=== PATIENT | male | born 1935 | race Asian ===

== ENCOUNTER 2022-04-02 13:12 | Inpatient (IN) | payer MEDICARE ==
[2022-04-02] MEDS ORDERED: ZIPRASIDONE MESYLATE 20 MG VIAL IM NR (15:30)
[2022-04-03] MEDS: LORazepam 2 MG/ML VIAL IM PRN ×3 (01:07→10:00)
[2022-04-03 07:21] LABS: Basophils % (Auto) 0.8 % (0.0-1.8); Eosinophils # (Auto) 0.1 K/mm3 (0.0-0.4); Eosinophils % (Auto) 2.1 % (0.0-4.3); Hematocrit 38.8 % (35.5-45.6); Hemoglobin 13.1 gm/dl (11.8-15.2); Lymphocytes # (Auto) 1.3 K/mm3 (1.2-5.4); Lymphocytes % (Auto) 33.8 % (13.4-35.0); Mean Corpuscular HGB Conc 34 % (32-34); Mean Corpuscular Volume 90 fl (84-94); Monocytes # (Auto) 0.3 K/mm3 (0.0-0.8); Monocytes % (Auto) 7.9 % (0.0-7.3); Platelet Count 191 K/mm3 (140-440); Red Cell Distribution Width 13.9 % (13.2-15.2)
[2022-04-03 07:54] LABS: Alanine Aminotransferase 22 units/L (7-56); Albumin 4.2 g/dL (3.9-5); BUN/Creatinine Ratio 23; Blood Urea Nitrogen 25 mg/dL (9-20); Calcium 9.2 mg/dL (8.4-10.2); HDL Cholesterol 37 mg/dL (40-59); Hemolysis Index 6; LDL Cholesterol,Direct 92 mg/dL (50-130)
--- NOTE | 2022-04-03 09:43 | History and Physical Report ---
GP History & Physical - History of Present Illness Date of admission: 04/02/22 Date of Examination: 04/03/22 Reason for Admission: Danger to self, Failure of Outpatient Treatment, Severe anxiety/depression History of Present Illness: HPI: became increasingly combative, aggressive and agitated @ assisted living facility. The patient was seen today. He is agitated. He is talking loudly and states he wants to leave. He is confused. Staff is at bedside. He says he's not doing well today, because "I can't leave my room. I'm worried about my job." He denies SI/HI. He says "I'm not thinking about hurting myself or anybody else unless I defend myself." He denies hallucinations. PAST PSYCHIATRIC HISTORY: Unable to obtain PAST MEDICAL HISTORY: None reported or document Family Psychiatric History: None reported or documented SOCIAL HISTORY Unable to obtain REVIEW OF SYSTEMS Unable to obtain MENTAL STATUS EXAMINATION Unable to obtain Diagnoses: Dementia with Behavioral Disturbance Treatment Plan Patient admitted for inpatient psychiatric evaluation, medication adjustment and close monitoring The patient's behavior, mood, sleep and appetite will be closely monitored. Patient enrolled in individual and group therapeutic sessions and encouraged to attend. Patient provided with a safe and structured environment. Patient's physical health needs will be addressed by the Hospitalist. Hospitalist Consulted Labs including CBC, CMP, Lipid profile and Hemoglobin A1C levels ordered for baseline reference Social Assessment will be completed and the [employer] Officer will work with patient and family to ensure a suitable and safe disposition Medication adjustment will be made as clinically indicated Continue home meds Start Valproic Acid 125mg po BID Usual Wellness Nondenominational/Preservation: - Start Trazodone 50 mg po QHS & 50 mg po QHS PRN between 10 PM & 2 AM for insomnia - Start Melatonin 5 mg po QHS to promote circadian rhythm The patient agreed on the treatment plan, understood the risk, benefit, alternative treatment, potential consequence of no treatment, and gave informed consent. Estimated days: 7 Post hospital care: primary care provider, psychiatric provider Case staffed with Dr. Flynn Legal Status: Voluntary Reaction to Hospitalization: Accepting Medications and Allergies Allergies Allergy/AdvReac Type Severity Reaction Status Date / Time No Known Allergies Allergy Unverified 04/02/22 13:14 Home Medications Medication Instructions Recorded Confirmed Last Taken Type Clopidogrel [Plavix] 75 mg 04/03/22 Unknown History LORazepam [Lorazepam] 0.5 mg PO 04/03/22 Unknown History Memantine [Namenda] 10 mg PO 04/03/22 Unknown History OLANzapine [ZyPREXA] 2.5 mg PO 04/03/22 Unknown History Pantoprazole [Protonix TAB] 20 mg PO 04/03/22 Unknown History Active Meds: Active Medications Lorazepam (Lorazepam 2 Mg/Ml Vial) 1 mg IM Q6H PRN PRN Reason: Agitation Last Admin: 04/03/22 01:07 Dose: 1 mg Results - Results Labs/Vitals: Laboratory Last Values WBC 3.8 K/mm3 (4.5-11.0) L 04/03/22 06:54 RBC 4.30 M/mm3 (3.65-5.03) 04/03/22 06:54 Hgb 13.1 gm/dl (11.8-15.2) 04/03/22 06:54 Hct 38.8 % (35.5-45.6) 04/03/22 06:54 MCV 90 fl (84-94) 04/03/22 06:54 MCH 31 pg (28-32) 04/03/22 06:54 MCHC 34 % (32-34) 04/03/22 06:54 RDW 13.9 % (13.2-15.2) 04/03/22 06:54 Plt Count 191 K/mm3 (140-440) 04/03/22 06:54 Lymph % (Auto) 33.8 % (13.4-35.0) 04/03/22 06:54 [place] % (Auto) 7.9 % (0.0-7.3) H 04/03/22 06:54 Eos % (Auto) 2.1 % (0.0-4.3) 04/03/22 06:54 Baso % (Auto) 0.8 % (0.0-1.8) 04/03/22 06:54 Lymph # (Auto) 1.3 K/mm3 (1.2-5.4) 04/03/22 06:54 [place] # (Auto) 0.3 K/mm3 (0.0-0.8) 04/03/22 06:54 Eos # (Auto) 0.1 K/mm3 (0.0-0.4) 04/03/22 06:54 Baso # (Auto) 0.0 K/mm3 (0.0-0.1) 04/03/22 06:54 Seg Neutrophils % 55.4 % (40.0-70.0) 04/03/22 06:54 Seg Neutrophils # 2.1 K/mm3 (1.8-7.7) 04/03/22 06:54 Sodium 144 mmol/L (137-145) 04/03/22 06:54 Potassium 4.5 mmol/L (3.6-5.0) 04/03/22 06:54 Chloride 106.4 mmol/L (98-107) 04/03/22 06:54 Carbon Dioxide 25 mmol/L (22-30) 04/03/22 06:54 Anion Gap 17 mmol/L 04/03/22 06:54 BUN 25 mg/dL (9-20) H 04/03/22 06:54 Creatinine 1.1 mg/dL (0.8-1.3) 04/03/22 06:54 Estimated GFR > 60 ml/min 04/03/22 06:54 BUN/Creatinine Ratio 23 % 04/03/22 06:54 Glucose 88 mg/dL (75-100) 04/03/22 06:54 Hemoglobin A1c 6.0 % (4-6) 04/03/22 06:54 Calcium 9.2 mg/dL (8.4-10.2) 04/03/22 06:54 Total Bilirubin 0.90 mg/dL (0.1-1.2) 04/03/22 06:54 AST 24 units/L (5-40) 04/03/22 06:54 ALT 22 units/L (7-56) 04/03/22 06:54 Alkaline Phosphatase 40 units/L (35-129) 04/03/22 06:54 Total Protein 6.2 g/dL (6.3-8.2) L 04/03/22 06:54 Albumin 4.2 g/dL (3.9-5) 04/03/22 06:54 Albumin/Globulin Ratio 2.1 % 04/03/22 06:54 Triglycerides 60 mg/dL (2-149) 04/03/22 06:54 Cholesterol 137 mg/dL (50-199) 04/03/22 06:54 LDL Cholesterol Direct 92 mg/dL (50-130) 04/03/22 06:54 HDL Cholesterol 37 mg/dL (40-59) L 04/03/22 06:54 Cholesterol/HDL Ratio 3.70 % 04/03/22 06:54 TSH 1.790 mlU/mL (0.270-4.200) 04/03/22 06:54 Last Vital Signs Temp 97.8 F 04/02/22 22:00 Pulse 61 04/02/22 22:00 Resp 18 04/02/22 22:00 BP 146/69 04/02/22 22:00 Pulse Ox 97 04/02/22 22:00 Physical Examination - Constitutional Vitals: Vital Signs Temp Pulse Resp BP Pulse Ox 97.8 F 61 18 146/69 97 04/02/22 22:00 04/02/22 22:00 04/02/22 22:00 04/02/22 22:00 04/02/22 22:00 Temperature -Last 24 Hours Temperature 97.8 F Temperature 97.8 F Temperature 97.6 F Mental Status Exam - Vital signs Last Vital Signs Temp 97.8 F 04/02/22 22:00 Pulse 61 04/02/22 22:00 Resp 18 04/02/22 22:00 BP 146/69 04/02/22 22:00 Pulse Ox 97 04/02/22 22:00 Physician Certification - Certification Statement Physician Certification Statement: This is an acknowledgement statement that BERE GROVES is a 86 year old M who requires inpatient psychiatric admission for treatment which could reasonably be expected to improve the patient's condition for Estimated period of time patient will need to remain in the hospital: [ ] Plan for post-hospital care: [ ]
[2022-04-03] MEDS ORDERED: LORazepam 0.5 MG TAB PO SCH (10:00)
[2022-04-03] MEDS ORDERED: CLOPIDOGREL 75 MG TAB PO SCH (10:00)
[2022-04-03] MEDS ORDERED: PANTOPRAZOLE 20 MG TAB PO SCH (10:00)
[2022-04-03] MEDS ORDERED: MEMANTINE 10 MG TAB PO SCH (10:00)
[2022-04-03 10:42] LABS: Hepatitis B Surface Antigen Non-Reactive (Negative); Hepatitis C Virus Antibody Non-Reactive (NonReactive)
--- NOTE | 2022-04-03 10:52 | Event Note ---
Date: 04/03/22 Spoke with the patient's spouse who is upset that the patient is here. Says she intended for the patient to go to [facility]. Advised the spouse that the patient is agitated, combative and attempting to leave. The spouse says she's aware of this and would like the patient transferred. Also spoke to the Nurse Practitioner for Dr. Palacios. She says she will call [facility] to see if they have a bed and still willing to accept the patient. If [facility] has a bed and is willing to take the patient, the patient will discharge to their services. Consulted with Dr. Flynn, who agrees with plan.
[2022-04-03] MEDS: VALPROIC ACID 250 MG/5 ML ORAL LIQD PO SCH ×2 (11:05→22:27)
--- NOTE | 2022-04-03 11:26 | Discharge Summary ---
Providers - Providers Date of Admission: 04/02/22 16:22 Date of discharge: 04/03/22 Attending physician: NITIN SETH MD 04/02/22 14:46 Consult to Physician [CONS] Routine Comment: Consulting Provider: BRAYN RON Physician Instructions: Reason For Exam: manage existing medical problems Primary care physician: IVONE GRADY MD Hospitalization Reason for admission: agitation Admitting Diagnosis: F02.81 - DEMENTIA IN OTH DISEASES CLASSD ELSWHR W BEHAVIORAL DISTURB Condition: Stable Hospital course: The patient was provided inpatient psychiatric treatment with safe and supportive environment, group/individual therapy, psychiatric medication, medication adjustment, adverse effect monitor, medical evaluation, medical treatment, social service assessment, social support meeting, placement assessment and psycho-education. The patients mood, cognition, behavior, motiv ation, compliance to treatment and appreciation on family/social support are improved and stabilized. At the time of discharge, the patient had no suicidal ideas, no homicidal ideas, no aggressive thoughts, no endangering behavior and no debilitating adverse effects. The patient agreed on the treatment plan, understood the risk, benefit, alternative treatment, potential consequence of no treatment, and gave informed consent. 04/03 The patient was seen today. He is agitated. He is talking loudly and states he wants to leave. He is confused. Staff is at bedside. He says he's not doing well today, because "I can't leave my room. I'm worried about my job." He denies SI/HI. He says "I'm not thinking about hurting myself or anybody else unless I defend myself." He denies hallucinations. Disposition: [address] [place] [address] Time spent for discharge: 35 Allergies/Adverse Reactions: Allergies No Known Allergies Allergy (Unverified 04/02/22 13:14) Vital Signs: Last Vital Signs Temp 97.8 F 04/02/22 22:00 Pulse 61 04/02/22 22:00 Resp 18 04/02/22 22:00 BP 146/69 04/02/22 22:00 Pulse Ox 97 04/02/22 22:00 Last Lab: Laboratory Last Values WBC 3.8 K/mm3 (4.5-11.0) L 04/03/22 06:54 RBC 4.30 M/mm3 (3.65-5.03) 04/03/22 06:54 Hgb 13.1 gm/dl (11.8-15.2) 04/03/22 06:54 Hct 38.8 % (35.5-45.6) 04/03/22 06:54 MCV 90 fl (84-94) 04/03/22 06:54 MCH 31 pg (28-32) 04/03/22 06:54 MCHC 34 % (32-34) 04/03/22 06:54 RDW 13.9 % (13.2-15.2) 04/03/22 06:54 Plt Count 191 K/mm3 (140-440) 04/03/22 06:54 Lymph % (Auto) 33.8 % (13.4-35.0) 04/03/22 06:54 [place] % (Auto) 7.9 % (0.0-7.3) H 04/03/22 06:54 Eos % (Auto) 2.1 % (0.0-4.3) 04/03/22 06:54 Baso % (Auto) 0.8 % (0.0-1.8) 04/03/22 06:54 Lymph # (Auto) 1.3 K/mm3 (1.2-5.4) 04/03/22 06:54 [place] # (Auto) 0.3 K/mm3 (0.0-0.8) 04/03/22 06:54 Eos # (Auto) 0.1 K/mm3 (0.0-0.4) 04/03/22 06:54 Baso # (Auto) 0.0 K/mm3 (0.0-0.1) 04/03/22 06:54 Seg Neutrophils % 55.4 % (40.0-70.0) 04/03/22 06:54 Seg Neutrophils # 2.1 K/mm3 (1.8-7.7) 04/03/22 06:54 Sodium 144 mmol/L (137-145) 04/03/22 06:54 Potassium 4.5 mmol/L (3.6-5.0) 04/03/22 06:54 Chloride 106.4 mmol/L (98-107) 04/03/22 06:54 Carbon Dioxide 25 mmol/L (22-30) 04/03/22 06:54 Anion Gap 17 mmol/L 04/03/22 06:54 BUN 25 mg/dL (9-20) H 04/03/22 06:54 Creatinine 1.1 mg/dL (0.8-1.3) 04/03/22 06:54 Estimated GFR > 60 ml/min 04/03/22 06:54 BUN/Creatinine Ratio 23 % 04/03/22 06:54 Glucose 88 mg/dL (75-100) 04/03/22 06:54 Hemoglobin A1c 6.0 % (4-6) 04/03/22 06:54 Calcium 9.2 mg/dL (8.4-10.2) 04/03/22 06:54 Total Bilirubin 0.90 mg/dL (0.1-1.2) 04/03/22 06:54 AST 24 units/L (5-40) 04/03/22 06:54 ALT 22 units/L (7-56) 04/03/22 06:54 Alkaline Phosphatase 40 units/L (35-129) 04/03/22 06:54 Total Protein 6.2 g/dL (6.3-8.2) L 04/03/22 06:54 Albumin 4.2 g/dL (3.9-5) 04/03/22 06:54 Albumin/Globulin Ratio 2.1 % 04/03/22 06:54 Triglycerides 60 mg/dL (2-149) 04/03/22 06:54 Cholesterol 137 mg/dL (50-199) 04/03/22 06:54 LDL Cholesterol Direct 92 mg/dL (50-130) 04/03/22 06:54 HDL Cholesterol 37 mg/dL (40-59) L 04/03/22 06:54 Cholesterol/HDL Ratio 3.70 % 04/03/22 06:54 TSH 1.790 mlU/mL (0.270-4.200) 04/03/22 06:54 Hepatitis A IgM Ab Non-reactive (NonReactive) 04/03/22 06:54 Hep Bs Antigen Non-reactive (Negative) 04/03/22 06:54 Hep B Core IgM Ab Non-reactive (NonReactive) 04/03/22 06:54 Hepatitis C Antibody Non-reactive (NonReactive) 04/03/22 06:54 Core Measure Documentation - Palliative Care Palliative Care/ Comfort Measures: Not Applicable - Core Measures Any of the following diagnoses?: none Exam - Constitutional Vitals: Temp Pulse Resp BP Pulse Ox 97.8 F 61 18 146/69 97 04/02/22 22:00 04/02/22 22:00 04/02/22 22:00 04/02/22 22:00 04/02/22 22:00 General appearance: Present: no acute distress - EENT Eyes: Present: PERRL, EOM intact ENT: hearing intact, clear oral mucosa - Neck Neck: Present: normal ROM - Respiratory Respiratory effort: normal Plan Activity: advance as tolerated Weight Bearing Status: Weight Bear as Tolerated Care Plan Goals: Maintain good and stable mental health Plan of Treatment: The patient should be compliant with medications, not to use drugs and not to drink alcohol.The patient understands that if suicidal ideas, homicidal ideas, or any endangering thoughts/behavior arise, they should immediately seek for emergent assistance including but not limited to crisis hot line and emergency room. Follow up with outpatient Psychiatrist and PCP within 7 - 14 days of discharge. Assessment: Dementia with behavioral disturbance Follow up with: IVONE GRADY MD [Primary Care Provider] - 7 Days Prescriptions: VALPROIC ACID Liq [DepaKENE Liq] 125 mg PO BID #60 oral.liqd
[2022-04-03] MEDS ORDERED: ZIPRASIDONE MESYLATE 20 MG VIAL IM ONE (13:55)
[2022-04-03] MEDS ORDERED: WATER FOR INJ Sterile (PF) 10 ML ONE (13:56)
[2022-04-03 20:39] VITALS: BP 159/85
--- NOTE | 2022-04-03 20:55 | Consultation ---
History of Present Illness - Reason for Consult Consult date: 04/03/22 Medical consult Requesting physician: NITIN SETH - History of Present Illness 86-year-old male patient was admitted to [facility] with history of increasingly combative aggressive and agitated behavior at assisted living facility, patient was danger to self failure of outpatient treatment and severe anxiety and depression. Hospitalist service was consulted for medical management. Prior to my evaluation patient was severely agitatedgot Stella and is sleeping Nurse reports that patient was combative and agitated, currently sleeping Vital signs reviewed Medications and Allergies Allergies Allergy/AdvReac Type Severity Reaction Status Date / Time No Known Allergies Allergy Unverified 04/02/22 13:14 Home Medications Medication Instructions Recorded Confirmed Last Taken Type Clopidogrel [Plavix] 75 mg 04/03/22 Unknown History LORazepam [Lorazepam] 0.5 mg PO 04/03/22 Unknown History Memantine 10 mg PO 04/03/22 Unknown History OLANzapine [ZyPREXA] 2.5 mg PO 04/03/22 Unknown History Pantoprazole [Protonix TAB] 20 mg PO 04/03/22 Unknown History VALPROIC ACID Liq [DepaKENE Liq] 125 mg PO BID #60 oral.liqd 04/03/22 Unknown Rx Active Meds: Active Medications Clopidogrel Bisulfate (Clopidogrel 75 Mg Tab) 75 mg PO QDAY [facility] Last Admin: 04/03/22 11:05 Dose: Not Given Lorazepam (Lorazepam 2 Mg/Ml Vial) 1 mg IM Q6H PRN PRN Reason: Agitation Last Admin: 04/03/22 08:50 Dose: 1 mg Lorazepam (Lorazepam 0.5 Mg Tab) 0.5 mg PO DAILY [facility] Last Admin: 04/03/22 11:05 Dose: Not Given Memantine (Memantine 10 Mg Tab) 10 mg PO DAILY [facility] Last Admin: 04/03/22 11:05 Dose: Not Given Olanzapine (Olanzapine 2.5 Mg Tab) 2.5 mg PO QDAY [facility] Last Admin: 04/03/22 11:05 Dose: Not Given Pantoprazole Sodium (Pantoprazole 20 Mg Tab) 20 mg PO QDAC [facility] Last Admin: 04/03/22 11:05 Dose: Not Given Valproic Acid (Valproic Acid 250 Mg/5 Ml Oral Liqd) 125 mg PO BID [facility] Last Admin: 04/03/22 11:05 Dose: Not Given Exam - Constitutional Vitals: Temp Pulse Resp BP Pulse Ox 97.6 F 71 16 159/85 92 04/03/22 20:37 04/03/22 20:37 04/03/22 20:37 04/03/22 20:37 04/03/22 20:37 Results - Labs CBC & Chem 7: 04/03/22 06:54 04/03/22 06:54 Labs: Abnormal lab results 04/03/22 04/03/22 Range/Units 06:54 06:54 WBC 3.8 L (4.5-11.0) K/mm3 [place] % (Auto) 7.9 H (0.0-7.3) % BUN 25 H (9-20) mg/dL Total Protein 6.2 L (6.3-8.2) g/dL HDL Cholesterol 37 L (40-59) mg/dL Assessment and Plan -- Severe dementia -- Combative behavior --Gastroesophageal reflux disease --
== END 2022-04-03 23:25 | DRG 884 ==
LOC: 3A 13:12 → UNDOADMIN 13:12 → 5A 16:22
PROVIDERS: ADMIT Psychiatry & Neurology Psychiatry; ATTEND Psychiatry & Neurology Psychiatry
DX: F03.91 Unspecified dementia, unspecified severity, with behavioral disturbance (principal); K21.9 Gastro-esophageal reflux disease without esophagitis
CPT/HCPCS: 36415; 80053; 80061; 80074; 83036; 84443; 85025; G0378; J2060; J3486